=== PATIENT | female | born 1980 | race Caucasian/White ===

== ENCOUNTER 2021-10-21 11:40 | Emergency (ER) | payer MEDICAID ==
[~2021-10-21] VITALS: Ht 162.6 cm; Wt 62.6 kg
[2021-10-21] MEDS ORDERED: NAPR-1009 PO (12:08)
[2021-10-21] MEDS ORDERED: KETOROLAC TROMETHAMINE 30 MG INJ IM ONE (12:15)
[2021-10-21] MEDS ORDERED: KETOROLAC TROMETHAMINE 30 MG INJ ONE (12:17)
--- NOTE | 2021-10-21 12:22 | NUR ---
MEDICATED FOR PAIN PER MD ORDER.
--- NOTE | 2021-10-21 12:38 | NUR ---
patient reports pain relief. Patient discharged to home in stable condition. Written and verbal after care instructions given. Patient verbalizes understanding of instructions. Stressed follow up or return to ER for worsening s/s.
== END 2021-10-21 12:39 | disposition home or self-care (01) ==
LOC: ER 11:40
DX: S56.511A Strain of other extensor muscle, fascia and tendon at forearm level, right arm, initial encounter (principal); X50.0XXA Overexertion from strenuous movement or load, initial encounter; Y92.89 Other specified places as the place of occurrence of the external cause; M77.8 Other enthesopathies, not elsewhere classified
CPT/HCPCS: 99283; 96372; J1885; A4663

== ENCOUNTER 2021-12-10 13:27 | Emergency (ER) | payer MEDICAID ==
[~2021-12-10] VITALS: Ht 157.5 cm; Wt 61.2 kg
[~2021-12-10 13:27] MED LIST: NAPR-1009 PO
--- NOTE | 2021-12-10 13:44 | NUR ---
Dr Morrison exam and evaluated the pt.
--- NOTE | 2021-12-10 14:47 | NUR ---
Pt resting in bed, No c/o SOB and pain, NAD noted.
[2021-12-10 15:06] LABS: HEMATOCRIT 38.3 % (31.2-41.9); MEAN CORPUSCULAR HEMOGLOBIN 30.1 uug (24.7-32.8); PLATELET COUNT (AUTO) 329 K/uL (179-408)
[2021-12-10 15:06] LABS: CARBON DIOXIDE 28 mmol/L (21-32); CREATININE 0.7 mg/dL (0.6-1.3); GLUCOSE 90 mg/dL (74-106); UREA NITROGEN, BLOOD 8 mg/dL (7-18)
[2021-12-10 15:07] LABS: ALANINE AMINOTRANSFERASE 20 U/L (14-59); ALKALINE PHOSPHATASE 36 U/L (50-136); ASPARTATE AMINOTRANSFERASE 8 U/L (15-37); BILIRUBIN,DIRECT 0.1 mg/dL (0.0-0.2); BILIRUBIN,TOTAL 0.7 mg/dL (0.2-1.0)
[2021-12-10 15:08] LABS: TOTAL PROTEIN, SERUM 7.9 g/dL (6.4-8.2)
[2021-12-10 15:15] LABS: CHLORIDE 103 mmol/L (98-107); POTASSIUM 3.6 mmol/L (3.5-5.1)
[2021-12-10 15:27] VITALS: BP 120/81
--- NOTE | 2021-12-10 15:27 | NUR ---
Patient discharged to home in stable condition. Written and verbal after care instructions given. Patient verbalizes understanding of instructions. Stressed follow up or return to ER for worsening s/s.
== END 2021-12-10 15:27 | disposition home or self-care (01) ==
LOC: ER 13:27
DX: R07.89 Other chest pain (principal)
CPT/HCPCS: 36415; 71045; 84484; 85025; 93005; A4663

== ENCOUNTER 2024-07-09 13:21 | Emergency (ER) | payer MEDICAID ==
[~2024-07-09] VITALS: Ht 157.5 cm; Wt 63.0 kg
[2024-07-09] MEDS ORDERED: LORAZEPAM 0.5 MG TABLET ONE (13:55)
[2024-07-09] MEDS: LORAZEPAM 0.5 MG TABLET PO ONE (13:55)
[2024-07-09 14:47] VITALS: BP 136/74; TEMP 98; O2SAT 99
== END 2024-07-09 14:49 | disposition home or self-care (01) ==
LOC: ER 13:21
DX: I10 Essential (primary) hypertension (principal); F41.9 Anxiety disorder, unspecified; R07.89 Other chest pain; Z87.39 Personal history of other diseases of the musculoskeletal system and connective tissue; Z91.012 Allergy to eggs
CPT/HCPCS: A4606; A4663